=== PATIENT | male | born 1990 | race Caucasian/White ===

== ENCOUNTER 2018-03-21 00:16 | Emergency (ER) | payer OTHER ==
[~2018-03-21] VITALS: Ht 172.7 cm; Wt 74.9 kg
[2018-03-21 00:28] VITALS: BP 143/88; PULSE 92; RESP 18; Ht 172.7 cm; Wt 74.9 kg
[2018-03-21] MEDS ORDERED: ACETAMINOPHEN 325 MG TAB PO ONE (02:00)
[2018-03-21] MEDS ORDERED: TRAM50TA2 PO (04:56)
[2018-03-21] MEDS ORDERED: IBUP-1542 PO (04:56)
--- NOTE | 2018-03-21 05:47 | ERD ---
ER Documentation Chief Complaint Chief Complaint states fell from 10 ft ladder x 10 hours ago, pain on back /head, no ko HPI 27-year-old male patient with no significant past medical history presents to ED complaining of falling off a ladder, 10 feet and landed on the right shoulder and rolled over to his left shoulder. Patient reports that he has some bruising to his left arm, right shoulder. Denies any fever, chills, nausea, vomiting, di arrhea, neck stiffness. Patient is up-to-date with his vaccinations. Denies any loss of consciousness. Reports that he smokes 3 packs/day. Denies any drinking prior to this injury. ROS All systems reviewed and are negative except as per history of present illness. Medications Home Meds Active Scripts Ibuprofen* (Motrin*) 600 Mg Tab, 600 MG PO Q6, #30 TAB Prov:DARCY HASKINS PA-C 03/21/18 Allergies Allergies: Coded Allergies: No Known Drug Allergies (Verified Allergy, Unknown, 03/21/18) PMhx/Soc Medical and Surgical Hx: pt denies Medical Hx, pt denies Surgical Hx Hx Alcohol Use: Yes Hx Substance Use: No Hx Tobacco Use: Yes Smoking Status: Heavy tobacco smoker FmHx Family History: No diabetes, No coronary disease Physical Exam Vitals Vital Signs Date Temp Pulse Resp B/P (MAP) Pulse Ox O2 O2 Flow FiO2 Time Delivery Rate 03/21/18 97.9 92 18 143/88 98 00:28 (106) Physical Exam Const: Ooe-qax-rlvrheuko, well-nourished. In no acute distress. Head: Atraumatic, normocephalic Eyes: Normal Conjunctiva without injection. No purulent discharge. PERRLA. EOMI ENT: Normal external ear. Ear canal without erythema. Tympanic membrane pearly gonzalez without effusion or bulging. Nasal canal clear with normal turbinates. Moist oropharynx without tonsillar exudates. Non-erythematous pharynx. Uvula midline. No drooling. No trismus. Neck: No cervical midline tenderness. Full range of motion. No meningismus. No cervical lymphadenopathy. No JVD. Resp: Clear to auscultation bilaterally. No wheezing, rhonchi, rales, or crackles. No accessory muscle use. No retractions. Cardio: Regular rate and rhythm. No murmurs, rubs or gallops. Abd: Soft, non tender, non distended. Normal bowel sounds. No palpable masses. No rebound tenderness. No guarding. Negative McBurney's Point. Negative Redd's Sign. Skin: Normal skin turgor. No petechiae or rashes Back: No midline tenderness. No CVA tenderness. Ext: No cyanosis, or edema. Distal pulses intact bilaterally. Ecchymosis noted over the left anterior upper arm with full range of motion of flexion, extension, supination, pronation, abduction and abduction of bilateral upper extremities. Tenderness palpation of the right lateral malleolus. Neur: Awake and alert. Normal gait. Normal coordination. Cranial Nerves II- VII intact. Normal finger to nose. Muscle strength 5/5. Sensation intact. Psych: Normal Mood and Affect Results 24 hrs Current Medications Medications Dose Sig/Kelvin Start Time Status Last (Trade) Ordered Route PRN Stop Time Admin Dose Reason Admin 650 mg ONCE ONCE 03/21/18 DC 03/21/18 Acetaminophen PO 02:00 01:51 (Tylenol 03/21/18 02:01 Tab) Procedures/MDM 27-year-old male patient with no significant past medical history presents to ED complaining of accidentally falling off a ladder. Patient is afebrile and non toxic-appearing. X-rays of the right shoulder, chest x-ray, low back, coccyx, left humerus, left wrist was ordered to further evaluate patient. Patient is placed in a Velcro wrist splint of the left wrist, Erick wrap of the right ankle. Splint Assessment: Neurovascularly intact pre and post splint placement with good fit. Patient's extremity symptoms have stabilized while they have been evaluated in the department and are appropriate for outpatient follow up. No evidence of fractures, dislocations noted on xray. Low suspicion for compartment syndrome, neurologic injury, vascular injury, open joint, open fracture, tendon laceration, septic arthritis, osteomyelitis, DVT, foreign body, or other emergent conditions. Patient is ambulating here in the ED without difficulty. Denies saddle anesthesia, numbness or tingling, urine or bowel incontinence, weakness. Low suspicion for cauda equina syndrome, cord compression, nephrolithiasis, aortic aneurysm, aortic dissection, epidural abscess, spinal hematoma, malignancy, pyelonephritis, or other emergent conditions. Diagnosis: Fall Discharge medications: Ibuprofen Follow up with primary care physician in 1-2 days for an orthopedic physician referral. Instructed patient to return to the ED sooner for any worsening symp toms. Patient's questions were answered. Patient is hemodynamically stable. Patient understood and agreed with discharge plan. Patient discharged stable. Disclaimer: Inadvertent spelling and grammatical errors are likely due to EHR/dictation software use and do not reflect on the overall quality of patient care. Also, please note that the electronic time recorded on this note does not necessarily reflect the actual time of the patient encounter. Departure Diagnosis: Primary Impression: Fall Encounter type: initial encounter Qualified Codes: W19.XXXA - Unspecified fall, initial encounter Condition: Stable Patient Instructions: What Are Ankle Sprains?, Contusion, Upper Extremity, HEAD INJURY, No Wake-Up (Adult), Shoulder Contusion Referrals: [facility] YOU HAVE RECEIVED A MEDICAL SCREENING EXAM AND THE RESULTS INDICATE THAT YOU DO NOT HAVE A CONDITION THAT REQUIRES URGENT TREATMENT IN THE EMERGENCY DEPARTMENT. FURTHER EVALUATION AND TREATMENT OF YOUR CONDITION CAN WAIT UNTIL YOU ARE SEEN IN YOUR DOCTORS OFFICE WITHIN THE NEXT 1-2 DAYS. IT IS YOUR RESPONSIBILITY TO MAKE AN APPOINTMENT FOR [facility]- CARE. IF YOU HAVE A PRIMARY DOCTOR --you should call your primary doctor and schedule an appointment IF YOU DO NOT HAVE A PRIMARY DOCTOR YOU CAN CALL OUR PHYSICIAN REFERRAL HOTLINE AT IF YOU CAN NOT AFFORD TO SEE A PHYSICIAN YOU CAN CHOSE FROM THE FOLLOWING [facility] [address] [facility]. [facility] [address] [facility]. [facility] [address] [facility] [facility] [address] [facility]. [facility] [address] [facility] [facility]. [address] [facility]. [facility] YOU HAVE RECEIVED A MEDICAL SCREENING EXAM AND THE RESULTS INDICATE THAT YOU DO NOT HAVE A CONDITION THAT REQUIRES URGENT TREATMENT IN THE EMERGENCY DEPARTMENT. FURTHER EVALUATION AND TREATMENT OF YOUR CONDITION CAN WAIT UNTIL YOU ARE SEEN IN YOUR DOCTORS OFFICE WITHIN THE NEXT 1-2 DAYS. IT IS YOUR RESPONSIBILITY TO MAKE AN APPOINTMENT FOR FOLOW-UP CARE. IF YOU HAVE A PRIMARY DOCTOR --you should call your primary doctor and schedule and appointment IF YOU DO NOT HAVE A PRIMARY DOCTOR YOU CAN CALL OUR PHYSICIAN REFERRAL HOTLINE AT . IF YOU CAN NOT AFFORD TO SEE A PHYSICIAN YOU CAN CHOSE FROM THE FOLLOWING [facility] INSTITUTIONS: [facility] [address] [place] [address] [facility] [address] [place] [address] [facility] [address] [place] [address] [facility] Urgent Care 7 a.m.- 11 p.m. Every Day of the Week NO APPOINTMENT OR AUTHORIZATION NEEDED SO [facility] Hours: Mon-Fri 9:00 AM - 5:00 PM Additional Instructions: Call your primary care doctor TOMORROW for an appointment during the next 2-3 days.See the doctor sooner or return here if your condition worsens before your appointment time. DARCY HASKINS PA-C Mar 21, 2018 05:47
== END 2018-03-21 05:32 | disposition home or self-care (01) ==
LOC: FTE 00:16
DX: S40.022A Contusion of left upper arm, initial encounter (principal); F17.210 Nicotine dependence, cigarettes, uncomplicated; W11.XXXA Fall on and from ladder, initial encounter; Y92.9 Unspecified place or not applicable
CPT/HCPCS: 29125; 70450; 71045; 72100; 72125; 72220; 73030; 73060; 73110; 73610; Z7502; Z7610

== ENCOUNTER 2018-05-08 08:29 | Emergency (ER) | payer OTHER ==
[~2018-05-08] VITALS: Ht 167.6 cm; Wt 78.4 kg
[~2018-05-08 08:29] MED LIST: IBUP-1542 PO
[2018-05-08 08:32] VITALS: BP 145/77; PULSE 88; RESP 20; Ht 167.6 cm; Wt 78.4 kg
[2018-05-08] MEDS ORDERED: LORAZEPAM 1 MG TAB PO ONE (10:00)
--- NOTE | 2018-05-08 13:49 | ERD ---
ER Documentation Chief Complaint Chief Complaint Complains of etoh withdrawal x3 days HPI Patient is a 27-year-old male with alcohol abuse who presents saying that he is having alcohol withdrawal. He has tremors. The symptoms started at 6 AM. He said that his last drink was about 9 hours ago. Upon review of old medical records this is the patient's second visit to our emergency department. Review of the emergency department information exchange system shows visits to 3 separate emergency departments. ROS All systems reviewed and are negative except as per history of present illness. Medications Home Meds Active Scripts Ibuprofen* (Motrin*) 600 Mg Tab, 600 MG PO Q6, #30 TAB Prov:DARCY HASKINS Epifanio LOMAX 03/21/18 Allergies Allergies: Coded Allergies: No Known Drug Allergies (Verified Allergy, Unknown, 03/21/18) PMhx/Soc History of Surgery: No Anesthesia Reaction: No Hx Neurological Disorder: No Hx Respiratory Disorders: No Hx Cardiac Disorders: No Hx Psychiatric Problems: No Hx Miscellaneous Medical Probl: Yes (ETOH ABUSE ) Hx Alcohol Use: Yes Hx Substance Use: No Hx Tobacco Use: Yes Smoking Status: Current every day smoker FmHx Family History: No diabetes Physical Exam Vitals Vital Signs Date Temp Pulse Resp B/P (MAP) Pulse Ox O2 O2 Flow FiO2 Time Delivery Rate 05/08/18 99.0 88 20 145/77 96 08:32 (99) Physical Exam Const: No acute distress Head: Atraumatic Eyes: Normal Conjunctiva ENT: Normal External Ears, Nose and Mouth. Neck: Full range of motion. No meningismus. Resp: Clear to auscultation bilaterally Cardio: Regular rate and rhythm, no murmurs Abd: Soft, non tender, non distended. Normal bowel sounds Skin: No petechiae or rashes Back: No midline or flank tenderness Ext: No cyanosis, or edema Neur: Awake and alert Psych: Normal Mood and Affect Results 24 hrs Current Medications Medications Dose Sig/Kelvin Start Time Status Last (Trade) Ordered Route PRN Stop Time Admin Dose Reason Admin Lorazepam 1 mg ONCE ONCE 05/08/18 DC 05/08/18 (Ativan) PO 10:00 09:41 05/08/18 10:01 Procedures/MDM Patient is a 27-year-old male who presents with alcohol withdrawal. He does not appear to have acute delirium tremens at this time and overall appears normal. The patient will be discharged after 1 dose of Ativan. He will be given information for the local substance abuse treatment centers as we do not do inpatient detox here at [facility]. The patient can return for any worsening symptoms. I believe outpatient management is appropriate. Departure Diagnosis: Primary Impression: Alcohol withdrawal syndrome Complication of substance-induced condition: uncomplicated Qualified Codes: F10.230 - Alcohol dependence with withdrawal, uncomplicated Condition: Fair Patient Instructions: Alcohol Withdrawal Referrals: [facility] YOU HAVE RECEIVED A MEDICAL SCREENING EXAM AND THE RESULTS INDICATE THAT YOU DO NOT HAVE A CONDITION THAT REQUIRES URGENT TREATMENT IN THE EMERGENCY DEPARTMENT. FURTHER EVALUATION AND TREATMENT OF YOUR CONDITION CAN WAIT UNTIL YOU ARE SEEN IN YOUR DOCTORS OFFICE WITHIN THE NEXT 1-2 DAYS. IT IS YOUR RESPONSIBILITY TO MAKE AN APPOINTMENT FOR FOLOW-UP CARE. IF YOU HAVE A PRIMARY DOCTOR --you should call your primary doctor and schedule an appointment IF YOU DO NOT HAVE A PRIMARY DOCTOR YOU CAN CALL OUR PHYSICIAN REFERRAL HOTLINE AT IF YOU CAN NOT AFFORD TO SEE A PHYSICIAN YOU CAN CHOSE FROM THE FOLLOWING [facility] [address] [facility]. [facility] [address] [facility]. [facility] [address] [facility]. [facility] [address] [facility]. [facility] [address] [facility]. [facility]. [address] Additional Instructions: Call your primary care doctor TOMORROW for an appointment during the next 1 WEEK.Tell the medical unit secretary that you were referred from this facility.See the doctor sooner or return here if your condition worsens before your appointment time. JUAN JOSE MILLER MD May 08, 2018 13:49
== END 2018-05-08 11:50 | disposition home or self-care (01) ==
LOC: E/R 08:29
DX: F10.230 Alcohol dependence with withdrawal, uncomplicated (principal); F17.210 Nicotine dependence, cigarettes, uncomplicated
CPT/HCPCS: Z7502; Z7610; 99283

== ENCOUNTER 2018-08-23 23:09 | Inpatient (IN) | payer OTHER ==
[~2018-08-23] VITALS: Ht 172.7 cm; Wt 74.0 kg
[2018-08-24 00:41] VITALS: Ht 172.7 cm; Wt 74.0 kg
[2018-08-24 01:04] VITALS: BP 119/77; PULSE 94; RESP 20
[2018-08-24] MEDS: LORAZEPAM 2 MG INJ IV PRN ×2 (01:18→06:50)
[2018-08-24] MEDS ORDERED: ACETAMINOPHEN 325 MG TAB PO PRN (01:30)
[2018-08-24 04:33] VITALS: BP 115/55; PULSE 95; RESP 18
[2018-08-24] MEDS ORDERED: PANTOPRAZOLE 40 MG INJ IV SCH (06:00)
[2018-08-24] MEDS: NICOTINE (21 MG/24 HR) PATCH TRANSDERM SCH ×2 (06:50→08:58)
[2018-08-24 07:10] VITALS: BP 111/74; PULSE 90; RESP 18
[2018-08-24] MEDS ORDERED: FAMOTIDINE 20 MG INJ IV SCH (09:00)
[2018-08-24] MEDS ORDERED: NICOTINE (21 MG/24 HR) PATCH TRANSDERM SCH (09:00)
[2018-08-24] MEDS ORDERED: MULTIVITAMINS 10 ML, THIAMINE 100 MG, FOLIC ACID 1 MG in SOD CHLORIDE 0.9% 1,000 ML IVPB SCH (09:00)
[2018-08-24] MEDS ORDERED: DOCUSATE SODIUM 100 MG CAP PO SCH (09:00)
[2018-08-24] MEDS ORDERED: LORAZEPAM 2 MG INJ IV ONE (10:00)
--- NOTE | 2018-08-24 10:02 | QN ---
Documentation Comment seen and examined TASHI SNELL MD Aug 24, 2018 10:02
[2018-08-24 11:08] VITALS: BP 122/77; PULSE 110; RESP 18
--- NOTE | 2018-08-24 12:21 | HP ---
DATE OF ADMISSION: 08/24/2018 REASON FOR ADMISSION: Transferred from [facility] secondary to altered mental status and alcoho l abuse. HISTORY OF PRESENT ILLNESS: Is a 28-year-old male with a past medical history of alcohol abuse in e past with alcohol intoxication, history of alcohol withdrawal seizures, who is currently on a DUI, presented to [facility] on 08/23/2018 when patient was found to be altered after being found mary n in an unmanned care. Currently, the patient remembers that he went to [facility] and the day befor e he drank a lot, about 2 pints of vodka, and then he went for his probation and he does not remember anything afterwards. Patient was brought to [facility] as he was found down in an unmanned car . On arrival to [facility], the patient's alcohol levels were over 500. CT of the head was don e that was negative for any mass, shift or bleed. Patient had AST of 457, ALT 564, alcohol level 53 6. Salicylate levels less than 4. Acetaminophen level less than 10. Potassium 3.2, chloride 100, b icarbonate 18. Patient was given ringer lactate and was given naloxone ____ and was transferred due to insurance reasons. Currently, the patient is awake, alert, able to answer all questions appropria tely and said he had been into alcohol rehabilitation also prior. Currently also goes to [facility]. PAST MEDICAL HISTORY: History of alcohol abuse, currently ____ DUI. ALLERGIES: NONE. PAST SURGICAL HISTORY: None. SOCIAL HISTORY: He has been drinking heavily for the past several years. Last alcohol was yesterday with 2 pints of vodka. Also smokes 1 to 2 packs of cigarettes every day. Denies any other recreati onal drug use. Currently lives with some friends. He works in a company part-time. REVIEW OF SYSTEMS: The patient denied any headaches, any nausea, vomiting, any diarrhea, any hematem esis, any melena, any blood per rectum. History of alcohol seizures before. Denied any focal neurol ogical deficits. PHYSICAL EXAMINATION: VITAL SIGNS: Currently, blood pressure 111/74, afebrile, heart rate 90, respirations 18, saturating 97%. GENERAL: The patient is awake, alert, oriented, answering questions appropriately, mildly tremulous. HEART: Regular rate and rhythm. LUNGS: Clear to auscultation bilaterally. ABDOMEN: Soft, nontender, nondistended, positive normoactive bowel sounds. EXTREMITIES: No clubbing, cyanosis, or edema. DIAGNOSTIC DATA: Here are pending, but the [facility] shows AST of 457, ALT 564, lipase was 45. ETOH 536. ASSESSMENT AND PLAN: This is a 28-year-old male with: 1. Altered mental status likely secondary to acute alcohol intoxication. CT of the head was negativ e for any mass, shift or bleed. The patient is wide awake, alert, answering questions appropriately. Neuro exam is normal. 2. Alcohol intoxication with elevated alcohol levels. 3. Abnormal ALT and AST with normal bilirubin level and alkaline phosphatase, likely secondary to al cohol intoxication. Acetaminophen levels are within normal limits. 4. History of smoking. PLAN: At this period of time, the patient is admitted to [facility]. The patient will be on banana bag, A tivan and Librium. Patient also on nicotine patch. We will call the geriatric social work professor consultation. Tony segovia was also advised smoking cessation. Currently, the patient denies any depression. Will also g et an abdominal ultrasound. The rest of the treatment will depend on the patient's hospitalization c [facility]. Dictated By: TASHI NO/AMADOU Conf#: [id number] DID#: [id number]
[2018-08-24] MEDS ORDERED: CHLORDIAZEPOXIDE 25 MG CAP PO SCH (13:00)
[2018-08-24 15:00] VITALS: BP 120/78; PULSE 103; RESP 18
--- NOTE | 2018-08-24 22:23 | DS ---
DATE OF ADMISSION: 08/24/2018 DATE OF DISCHARGE: 08/24/2018 Please see the H and P that was dictated on 08/24/2018. The patient was transferred from [facility] secondary to altered mental status and alcohol abuse. A 28-year-old male with history of alcoho l abuse in the past, alcohol intoxication, history of alcohol withdrawal seizures who presented to [facility] found to be altered after being found down in an unmanned car. The patient remembers t hat he went to [place] day before he drank a lot about 2 pints of vodka, went for his probation. He does not remember anything else afterwards. On arrival to [facility], the patient's alcohol levels were over 500. CT of the head was done and was negative. AST 447, ALT 564, salicylate levels less than 4, alcohol levels 536, potassium 3.2, chloride 100, bicarbonate 18. The patient was given naloxone, lactated Ringer. He was transferred due to insurance reason here. The patient was wide a wake, alert, oriented, was demanding food. The patient was started on Ativan and Librium and nicotin e patch. However, patient left AMA. Dictated By: TASHI NO/AMADOU Conf#: [id number] DID#: [id number]
== END 2018-08-24 15:13 | disposition left against medical advice (07) | DRG 894 ==
LOC: 6WM 08-24 00:15
PROVIDERS: ADMIT Internal Medicine Nephrology; ATTEND Internal Medicine Nephrology
DX: F10.129 Alcohol abuse with intoxication, unspecified (principal); F17.210 Nicotine dependence, cigarettes, uncomplicated; Y90.8 Blood alcohol level of 240 mg/100 ml or more
CPT/HCPCS: 86704; 86709; 86803; 87340; J2060; J3411; J7030